=== PATIENT | female | born 1960 | race Caucasian/White ===

== ENCOUNTER 2020-04-30 16:07 | Emergency (ER) | payer OTHER ==
[~2020-04-30] VITALS: Ht 162.6 cm; Wt 65.8 kg
[2020-04-30 16:32] VITALS: BP 151/94
--- NOTE | 2020-04-30 16:56 | NUR ---
Patient discharged to home in stable condition. Written and verbal after care instructions given. Patient verbalizes understanding of instruction. Pt ambulatory with a steady gait
--- NOTE | 2020-04-30 16:56 | NUR ---
COVID SWAB DONE AND SENT TO LAB
== END 2020-04-30 16:57 | disposition home or self-care (01) ==
LOC: ER 16:14
DX: M79.10 Myalgia, unspecified site (principal); R43.0 Anosmia; Z20.822 Contact with and (suspected) exposure to COVID-19; R03.0 Elevated blood-pressure reading, without diagnosis of hypertension
CPT/HCPCS: 99283; C9803; U0003